=== PATIENT | male | born 1940 | race Caucasian/White ===

== ENCOUNTER 2017-06-22 14:51 | Emergency (ER) | payer OTHER ==
[~2017-06-22] VITALS: Ht 177.8 cm; Wt 77.1 kg
[~2017-06-22 14:51] MED LIST: ARTIFICIAL TEA1 EACH OPHTHALMIC; ASPIRIN325 PO; ASPIRIN81 M2 PO; CALCIUM-VITAMI1 EAC1 PO; COLACE100 MG PO; COZAAR 50 MG TA50 M2 PO; HYDROCODONE-AP1 EAC6 PO; IMDUR 30 MG TAB30 M1 PO; LEVAQUIN 500 M500 M2 PO; LIPITOR 20 MG T20 M1 PO; LIPITOR10 MG PO; LORTAB 5-500 T1 EAC1; NO MEDICATIONS; RANEXA500 MG PO; SENNA; TAMSULOSIN HCL0.4 MG PO; TOPROL XL100 MG PO; TOPROL XL25 MG; TRAVATAN Z2.5 ML OPHTHALMIC; ZOFRAN; ZOLOFT50 MG PO
[2017-06-22 15:27] LABS: URINE BILIRUBIN NEGATIVE (Negative); URINE BLOOD 3+ (Negative); URINE CLARITY CLOUDY; URINE COLOR YELLOW; URINE GLUCOSE-RANDOM NEGATIVE (Negative); URINE KETONES NEGATIVE (Negative); URINE LEUKOCYTES-REFLEX 3+ (Negative); URINE NITRITE-REFLEX POSITIVE (Negative); URINE PROTEIN TRACE (Negative); URINE SPECIFIC GRAVITY 1.015 (1.005-1.030); URINE UROBILINOGEN 0.2 E.U./dl (0.2-1.0)
[2017-06-22 15:32] LABS: ABSOLUTE EOSINOPHILS 0.1 thou/uL (0.0-0.7); ABSOLUTE MONOCYTES 0.7 thou/uL (0.0-1.2); BASOPHILS 0.4 %; EOSINOPHILS 1.4 %; LYMPHOCYTES 29.1 %; MCH 30.5 pg (26.0-34.0); MCHC 34.2 g/dL (28.0-37.0); MCV 89.1 fL (80.0-100.0); MONOCYTES 10.4 %; NUCLEATED RBCS 0 /100WBC; PLATELET COUNT* 127 thou/uL (150-400); POLYS 58.7 %; RBC 3.93 mil/uL (4.50-6.00); RDW-CV 14.1 % (10.5-14.5); WBC 6.9 thou/uL (4.0-11.0)
[2017-06-22 15:35] LABS: CALCIUM 8.7 mg/dL (8.5-10.1); CREATININE 0.8 mg/dL (0.6-1.3); POTASSIUM 4.3 mmol/L (3.5-5.1)
[2017-06-22 15:37] LABS: CASTS None Seen /LPF (None Seen); CRYSTALS None Seen /LPF (None Seen); SQUAMOUS NONE SEEN /LPF (0-3); URINE RBC >20 Many /HPF (0-2); URINE WBC-REFLEX >25 Many /HPF (0-5)
[2017-06-22 15:39] LABS: ALBUMIN 3.6 g/dL (3.4-5.0); TOTAL BILIRUBIN 0.7 mg/dL (<0.1-1.0); TOTAL PROTEIN 6.3 g/dL (6.4-8.2)
[2017-06-22] MEDS ORDERED: BACTRIM DS TAB1 EACH PO (15:49)
[2017-06-22 15:58] VITALS: BP 155/59
== END 2017-06-22 15:59 | disposition home or self-care (01) ==
LOC: M.ERS 14:51
PROVIDERS: Physician Assistant
DX: N39.0 Urinary tract infection, site not specified (principal); E78.00 Pure hypercholesterolemia, unspecified; Z90.89 Acquired absence of other organs; Z86.73 Personal history of transient ischemic attack (TIA), and cerebral infarction without residual deficits; Z85.47 Personal history of malignant neoplasm of testis